=== PATIENT | female | born 1950 | race Caucasian/White ===

== ENCOUNTER 2021-05-02 07:14 | Day surgery (SDC) | payer MEDICARE, MEDICAID ==
[~2021-05-02] VITALS: Ht 149.9 cm; Wt 63.5 kg
[2021-05-02] MEDS ORDERED: MEPERIDINE 100 MG INJ. 100 MG/ML VIAL ONE (09:05)
[2021-05-02] MEDS ORDERED: SIMETHICONE 40 MG/0.6 ML ML ONE (09:05)
[2021-05-02] MEDS ORDERED: MIDAZOLAM HCL 5 MG/5 ML VIAL ONE (09:06)
[2021-05-02 11:05] VITALS: BP_SYST 95
== END 2021-05-02 10:35 | disposition home or self-care (01) ==
LOC: SDS 07:14 → SMU 07:15 → SDS 10:35
PROVIDERS: ATTEND Internal Medicine Gastroenterology
DX: Z12.11 Encounter for screening for malignant neoplasm of colon (principal); K64.8 Other hemorrhoids; E11.9 Type 2 diabetes mellitus without complications; I10 Essential (primary) hypertension; R79.89 Other specified abnormal findings of blood chemistry; Z79.82 Long term (current) use of aspirin; Z79.84 Long term (current) use of oral hypoglycemic drugs; Z20.822 Contact with and (suspected) exposure to COVID-19
CPT/HCPCS: 45378; 82962; 99152; G0378; J2175; J2250; U0003